=== PATIENT | female | born 1940 | race Caucasian/White ===

== ENCOUNTER 2017-06-27 15:53 | Observation (INO) ==
[2017-06-27 16:59] LABS: Bilirubin,Urine Negative (Negative); Blood,Urine Negative (Negative); Clarity,Urine Cloudy (Clear); Color,Urine Yellow (Yellow); Glucose,Urine (UA) Normal (Normal); Ketones,Urine Trace mg/dL (Negative); Leukocyte Esterase,Urine Moderate (Negative); Nitrite,Urine Negative (Negative); Protein,Urine Trace mg/dL (Neg-Trace); Specific Gravity,Urine 1.026 (1.010-1.025); Urobilinogen,Urine Normal (Normal)
[2017-06-27 17:04] LABS: Bacteria,Urine None Seen per hpf (None-Few); Hyaline Casts,Urine Few per lpf (None-Few); Squamous Epithelial Cell,Urine Many per lpf (None-Few); WBC,Urine 15-30 per hpf (0-3)
[2017-06-27 17:25] LABS: Basophils # 0.1 K/mcL (0.0-0.2); Basophils % 1.1 %; Eosinophils # 0.2 K/mcL (0.0-0.6); Hematocrit 34.9 % (35.3-44.9); Hemoglobin 11.4 g/dL (11.5-15.4); Immature Granulocytes % 0.4 % (0-4); Lymphocytes # 2.6 K/mcL (0.6-4.6); Lymphocytes % 32.7 %; Mean Corpuscular HGB Conc 32.7 g/dL (31.6-35.5); Mean Corpuscular Hemoglobin 33.4 pg (28.0-33.3); Mean Corpuscular Volume 102.3 fL (83.0-100.0); Mean Platelet Volume 8.8 fL (9.4-12.4); Monocytes # 0.7 K/mcL (0.0-1.3); Monocytes % 8.5 %; Neutrophils # 4.3 K/mcL (1.6-8.9); Platelet Count 290 K/mcL (140-400); Red Blood Count 3.41 M/mcL (3.82-4.97); Red Cell Distribution Width 13.3 % (11.5-14.5); Segmented Neutrophils % 54.3 %
[2017-06-27 17:54] LABS: Albumin 4.1 g/dL (3.5-5.7); Albumin/Globulin Ratio 1.1 (1.1-2.2); Bilirubin,Indirect 0.3 mg/dL (0.0-1.2); Bilirubin,Total 0.3 mg/dL (0.3-1.0); Calcium 9.6 mg/dL (8.6-10.3); Globulin 3.6 g/dL (2.4-3.5); Potassium 4.1 mEq/L (3.5-5.1); Total Protein 7.7 g/dL (6.4-8.9)
--- NOTE | 2017-06-27 18:25 | Emergency Department Note ---
Disposition Clinical Impression: Bloody stool Abdominal pain Qualifiers: Abdominal location: unspecified location Qualified Code(s): R10.9 - Unspecified abdominal pain Disposition: Admitted As Inpatient Condition: Good Time of Disposition: 20:47 General Adult HPI - General Chief complaint: ED Abdominal Pain Stated complaint: "bloody diarrhea" Time Seen by Provider: 06/27/17 18:05 Source: patient Limitations: no limitations Nursing Notes Reviewed: Yes Vital Signs Reviewed: Yes - History of Present Illness HPI Narrative: Patient is a 76-year-old female that presents to the emergency Department with blood in her stool. States that she has been having a lot of diarrhea lately and today had a bright red bloody bowel movement with clots. She states that there is blood in the toilet and when she wiped she had clots in the toilet paper. She has that she has never had anything like this before. Patient also states that she has been having right-sided flank and abdominal pain for the past few months and was going to have this evaluated by CT but has not been able to do so yet. Patient states that she has only had 1 episode of bloody diarrhea. She states that she is not feeling any more dizzy or lightheaded than normal. Pain Scale: 10 - Related Data Home Medications Medication Instructions Recorded Confirmed Allopurinol [Zyloprim 300 MG] 300 mg PO DAILY 09/12/15 06/27/17 Esomeprazole Magnesium [Nexium] 40 mg PO DAILY 09/12/15 06/27/17 Fluticasone/Salmeterol [Advair 1 each IH BID 09/12/15 06/27/17 250-50 Diskus] Indapamide [Lozol] 1.25 mg PO DAILY 09/12/15 06/27/17 LORazepam [Ativan] 0.5 mg PO BID 09/12/15 06/27/17 Ranitidine HCl [Zantac] 150 mg PO BID PRN 09/12/15 06/27/17 Albuterol Neb [Proventil Neb] 2.5 mg IH QID 06/27/17 06/27/17 Albuterol Sulfate [Proair Hfa] 2 puff IH Q4-6H PRN 06/27/17 06/27/17 Buspirone HCl [Buspar] 15 mg PO TID 06/27/17 06/27/17 Cefdinir [Omnicef] 300 mg PO BID 06/27/17 06/27/17 DULoxetine [Cymbalta] 20 mg PO DAILY 06/27/17 06/27/17 Gabapentin [Neurontin] 100 mg PO HS 06/27/17 06/27/17 Levothyroxine [Synthroid] 25 mcg PO QAM 06/27/17 06/27/17 Lisinopril [Zestril] 40 mg PO DAILY 06/27/17 06/27/17 Nitroglycerin [Nitrostat] 0.4 mg SL Q5M PRN 06/27/17 06/27/17 Ropinirole HCl [Requip] 0.5 - 1 mg PO HS 06/27/17 06/27/17 Theophylline Anhydrous [[place]-24] 300 mg PO BID 06/27/17 06/27/17 Allergies Allergy/AdvReac Type Severity Reaction Status Date / Time codeine Allergy Chest Pain Verified 06/27/17 16:37 All systems ED: reviewed and negative except as stated. Cardiovascular: Denies: chest pain Respiratory: Denies: dyspnea Gastrointestinal: Reports: abdominal pain, hematochezia Musculoskeletal: Reports: back pain Past Medical History - Past Medical History Medical history: Reports: asthma, atrial fibrillation, CHF, GERD, hypertension Surgical history: Reports: appendectomy, cholecystectomy, hysterectomy, other Psychiatric history: Reports: anxiety - Social History Smoking Status: Never smoker Smokeless Tobacco Status: No Alcohol use: Reports: none Drug use: Reports: none Physical Exam - General Limitations: no limitations (Right flank) General appearance: alert, in no apparent distress - Head Head exam: atraumatic, normocephalic - Eye Eye exam: Present: normal appearance, EOMI - Neck Neck exam: Present: normal inspection, full ROM, trachea midline - Respiratory Respiratory exam: Present: normal lung sounds bilaterally. Absent: respiratory distress, wheezes - Cardiovascular Cardiovascular exam: Present: regular rate, normal rhythm, normal heart sounds, +S1, +S2 - Abdominal Exam Abdominal exam: Present: soft, tenderness, normal bowel sounds Abdominal tenderness: Present: diffuse - Neurological Exam Neurological exam: Present: alert, oriented X3 - Psychiatric Psychiatric exam: Present: normal affect, normal mood - Skin Skin exam: Present: warm, dry, intact Course Vital Signs Temperature 98.1 F 06/27/17 16:34 Pulse Rate 76 06/27/17 16:34 Respiratory Rate 16 06/27/17 16:34 Blood Pressure 136/75 06/27/17 16:34 O2 Sat by Pulse Oximetry 97 06/27/17 16:34 Temperature 98.8 F 06/27/17 23:12 Pulse Rate 74 06/27/17 23:12 Respiratory Rate 16 06/27/17 23:12 Blood Pressure 147/85 06/27/17 23:12 O2 Sat by Pulse Oximetry 97 06/27/17 23:12 Oxygen Delivery Oxygen Delivery Room Air Medical Decision Making - MDM Narrative Medical decision making narrative: Due to the patient having bloody stool and abdominal pain on exam will obtain a CBC, BMP, hepatic panel, lipase, urinalysis and a CT of the abdomen and pelvis. Patient is a mildly elevated creatinine of 1.73 her baseline is 1.4-1.5. Patient has a hemoglobin of 11.4 however this appears to be chronic for her. Due to the patient having positive stool occult and passing clots in her stool that the patient should be admitted to trend her hemoglobin and rule out a GI bleed. I called and spoke with the hospitalist and they have accepted the patient to their service. Patient will be admitted to the hospital at this time. Consult to GI was placed. - Lab Data Lab results reviewed: Yes I reviewed the patient's lab results. Result diagrams: 06/27/17 17:05 06/27/17 17:05 Lab Results 06/27/17 06/27/17 06/27/17 Range/Units 16:45 17:05 17:05 WBC 7.9 (4.3-11.1) K/mcL RBC 3.41 L (3.82-4.97) M/mcL Hgb 11.4 L (11.5-15.4) g/dL Hct 34.9 L (35.3-44.9) % MCV 102.3 H (83.0-100.0) fL MCH 33.4 H (28.0-33.3) pg MCHC 32.7 (31.6-35.5) g/dL RDW 13.3 (11.5-14.5) % Plt Count 290 (140-400) K/mcL MPV 8.8 L (9.4-12.4) fL Immature Gran % 0.4 (0-4) % Seg Neutrophils % 54.3 % Lymphocytes % 32.7 % Monocytes % 8.5 % Eosinophils % 3.0 % Basophils % 1.1 % Neutrophils # 4.3 (1.6-8.9) K/mcL Lymphocytes # 2.6 (0.6-4.6) K/mcL Monocytes # 0.7 (0.0-1.3) K/mcL Eosinophils # 0.2 (0.0-0.6) K/mcL Basophils # 0.1 (0.0-0.2) K/mcL Sodium 142 (136-145) mEq/L Potassium 4.1 (3.5-5.1) mEq/L Chloride 110 H (98-107) mEq/L Carbon Dioxide 25 (23-29) mEq/L BUN 31 H (8-23) mg/dL Creatinine 1.73 H (0.60-1.20) mg/dL Est GFR ( Amer) 35 L (> 60) Est GFR (Non-Af Amer) 29 L (> 60) BUN/Creatinine Ratio 18 (6-26) Glucose 89 (70-105) mg/dL Calculated Osmolality 300 (280-300) Lactic Acid (0.5-2.2) mmol/L Calcium 9.6 (8.6-10.3) mg/dL Total Bilirubin 0.3 (0.3-1.0) mg/dL Direct Bilirubin 0.0 (0.0-0.2) mg/dL Indirect Bilirubin 0.3 (0.0-1.2) mg/dL AST 19 (13-39) Units/L ALT 18 (7-52) Units/L Alkaline Phosphatase 86 (34-104) Units/L Serum Total Protein 7.7 (6.4-8.9) g/dL Albumin 4.1 (3.5-5.7) g/dL Globulin 3.6 H (2.4-3.5) g/dL Albumin/Globulin Ratio 1.1 (1.1-2.2) Lipase 69 (11-82) Units/L Urine Color Yellow (Yellow) Urine Clarity Cloudy A (Clear) Urine pH 5.0 (5.0-8.0) pH Units Ur Specific [place] 1.026 H (1.010-1.025) Urine Protein Trace (Neg-Trace) mg/dL Urine Glucose (UA) Normal (Normal) mg/dL Urine Ketones Trace H (Negative) mg/dL Urine Blood Negative (Negative) Urine Nitrite Negative (Negative) Urine Bilirubin Negative (Negative) Urine Urobilinogen Normal (Normal) mg/dL Ur Leukocyte Esterase Moderate H (Negative) Urine Microscopic RBC 5-15 H (0-3) per hpf Urine Microscopic WBC 15-30 H (0-3) per hpf Ur Squamous Epith Cells Many H (None-Few) per lpf Urine Bacteria None Seen (None-Few) per hpf Hyaline Casts Few (None-Few) per lpf Ur Culture Indicated? NO. (NO) Stool Occult Blood (Negative) 06/27/17 06/27/17 Range/Units 20:10 20:51 WBC (4.3-11.1) K/mcL RBC (3.82-4.97) M/mcL Hgb (11.5-15.4) g/dL Hct (35.3-44.9) % MCV (83.0-100.0) fL MCH (28.0-33.3) pg MCHC (31.6-35.5) g/dL RDW (11.5-14.5) % Plt Count (140-400) K/mcL MPV (9.4-12.4) fL Immature Gran % (0-4) % Seg Neutrophils % % Lymphocytes % % Monocytes % % Eosinophils % % Basophils % % Neutrophils # (1.6-8.9) K/mcL Lymphocytes # (0.6-4.6) K/mcL Monocytes # (0.0-1.3) K/mcL Eosinophils # (0.0-0.6) K/mcL Basophils # (0.0-0.2) K/mcL Sodium (136-145) mEq/L Potassium (3.5-5.1) mEq/L Chloride (98-107) mEq/L Carbon Dioxide (23-29) mEq/L BUN (8-23) mg/dL Creatinine (0.60-1.20) mg/dL Est GFR ( Amer) (> 60) Est GFR (Non-Af Amer) (> 60) BUN/Creatinine Ratio (6-26) Glucose (70-105) mg/dL Calculated Osmolality (280-300) Lactic Acid 0.7 (0.5-2.2) mmol/L Calcium (8.6-10.3) mg/dL Total Bilirubin (0.3-1.0) mg/dL Direct Bilirubin (0.0-0.2) mg/dL Indirect Bilirubin (0.0-1.2) mg/dL AST (13-39) Units/L ALT (7-52) Units/L Alkaline Phosphatase (34-104) Units/L Serum Total Protein (6.4-8.9) g/dL Albumin (3.5-5.7) g/dL Globulin (2.4-3.5) g/dL Albumin/Globulin Ratio (1.1-2.2) Lipase (11-82) Units/L Urine Color (Yellow) Urine Clarity (Clear) Urine pH (5.0-8.0) pH Units Ur Specific [place] (1.010-1.025) Urine Protein (Neg-Trace) mg/dL Urine Glucose (UA) (Normal) mg/dL Urine Ketones (Negative) mg/dL Urine Blood (Negative) Urine Nitrite (Negative) Urine Bilirubin (Negative) Urine Urobilinogen (Normal) mg/dL Ur Leukocyte Esterase (Negative) Urine Microscopic RBC (0-3) per hpf Urine Microscopic WBC (0-3) per hpf Ur Squamous Epith Cells (None-Few) per lpf Urine Bacteria (None-Few) per hpf Hyaline Casts (None-Few) per lpf Ur Culture Indicated? (NO) Stool Occult Blood Positive A (Negative) - Radiology Data Radiology results reviewed: Yes I reviewed the patient's radiology results. Abdomen/Pelvis CT 06/27/17 18:22 IMPRESSION: 1. No acute abnormality in the abdomen or pelvis. No explanation for the patient's bloody diarrhea. 2. Colonic diverticulosis. 3. Small nonobstructing left intrarenal calculi. 4. Status post cholecystectomy and hysterectomy. D/ / Jesus Mac MD / Jesus Mac MD Interpreting Provider: Jesus Mac MD Attestation Statement - Attestation Attestation: I examined this patient and my medical decision-making was reviewed with the Resident Physician. I agree with the documented findings, disposition and treatment plan as described except to the extent set forth below. No peritoneal abdominal examination, advanced imaging is negative, will admit for trending of colon and hematocrit as well as possible GI consultation for possible colitis, antibiotic started for possible colitis.
[2017-06-27] MEDS ORDERED: Famotidine 20 MG TABLET PO PRN (22:00)
[2017-06-27] MEDS ORDERED: Nitroglycerin 0.4 MG TAB.SUBL SL PRN (22:00)
[2017-06-27] MEDS ORDERED: Naloxone 0.4 MG/ML INJ IVP PRN (22:01)
[2017-06-27] MEDS ORDERED: Ondansetron 4 MG/2 ML VIAL IVP PRN (22:03)
--- NOTE | 2017-06-27 22:09 | Internal Med History&Physical ---
Date of Encounter: 06/27/17 Time of Encounter: 22:05 Assessment and Plan (1) Bloody stool Current visit: Yes Status: Acute CT A/p w/o colitis Check Hb in the a.m send O and P, stool culture, Cdiff given antibiotics clears IVF GI follow up in the a.m (2) Diarrhea Current visit: Yes Status: Acute check above studies has complete 7 days of antibiotics for UTI per patient. Hold for now pending above studies Qualifiers: Diarrhea type: presumed infectious Qualified Code(s): R19.7 - Diarrhea, unspecified (3) CKD (chronic kidney disease) stage 3, GFR 30-59 ml/min Current visit: Yes Status: Acute mild renal insufficiency has CKD (4) HTN (hypertension), benign Current visit: Yes Status: Acute continue med Internal Medicine - H&P: HPI Chief complaint: Blood diarrhea History of present illness: Ms. Bahnea is a 76 year old female who presents with bloody diarrhea. Hx of HTN and asthma. She reports chronic on and off diarrhea for the last several months that comes on and off every 3-4 days. Described as watery. Today, she had 1 episode of red bloody diarrhea described as bright red with some scant clots. Denies Belly pain. Reports subacute onset of Right flank pain the goes down the the back of the flanks and into leg that is better with tylenol. Of note, she had been taking antibiotics - cephalosporin for the last 7 days as prescribed by PCP Dr Vanegas for empiric UTI therapy. On review, she denies hx of GIB. She lives with 18 yo great grandson and uses a cane CT/CT abd pelvis wo no iv no oral IMPRESSION: 1. No acute abnormality in the abdomen or pelvis. No explanation for the patient's bloody diarrhea. 2. Colonic diverticulosis. 3. Small nonobstructing left intrarenal calculi. 4. Status post cholecystectomy and hysterectomy. Past Med Surg Social Fam HX - Past Medical History Medical history: asthma, atrial fibrillation, CHF, GERD, hypertension Psychiatric history: anxiety - Past Surgical History Surgical History: appendectomy, cholecystectomy, hysterectomy, other - Social History Smoking Status: Never smoker Smokeless Tobacco Status: No Alcohol use: none Drug use: none - Family History Father Adopted: No Mother Adopted: No Family Member Ethnicity: Non- Living Status: Internal Medicine - H&P: Meds Allopurinol [Zyloprim 300 MG] 300 mg PO DAILY 09/12/15 [History] Esomeprazole Magnesium [Nexium] 40 mg PO DAILY 09/12/15 [History] Fluticasone/Salmeterol [Advair 250-50 Diskus] 1 each IH BID 09/12/15 [History] Indapamide [Lozol] 1.25 mg PO DAILY 09/12/15 [History] LORazepam [Ativan] 0.5 mg PO BID 09/12/15 [History] Ranitidine HCl [Zantac] 150 mg PO BID PRN 09/12/15 [History] Albuterol Neb [Proventil Neb] 2.5 mg IH QID 06/27/17 [History] Albuterol Sulfate [Proair Hfa] 2 puff IH Q4-6H PRN 06/27/17 [History] Buspirone HCl [Buspar] 15 mg PO TID 06/27/17 [History] Cefdinir [Omnicef] 300 mg PO BID 06/27/17 [History] DULoxetine [Cymbalta] 20 mg PO DAILY 06/27/17 [History] Gabapentin [Neurontin] 100 mg PO HS 06/27/17 [History] Levothyroxine [Synthroid] 25 mcg PO QAM 06/27/17 [History] Lisinopril [Zestril] 40 mg PO DAILY 06/27/17 [History] Nitroglycerin [Nitrostat] 0.4 mg SL Q5M PRN 06/27/17 [History] Ropinirole HCl [Requip] 0.5 - 1 mg PO HS 06/27/17 [History] Theophylline Anhydrous [[place]-24] 300 mg PO BID 06/27/17 [History] 3 Allergy/AdvReac Type Severity Reaction Status Date / Time codeine Allergy Chest Pain Verified 06/27/17 16:37 All Systems PM: A 10-system review of systems was performed and is negative for pertinent findings except as documented above in the HPI. Review of systems: ROS 14 point review of systems reviewed as best as possible given presentation. Pertinent positive or negative as per HPI or otherwise reviewed as negative - Constitutional Vitals: Temp Pulse Resp BP Pulse Ox 98.1 F 76 16 155/86 97 02/08/18 16:34 06/27/17 16:34 06/27/17 21:39 06/27/17 21:39 06/27/17 16:34 Exam: General - AAO x 3 Psych - Appropriate affect/speech. No agitation Eyes - ONUR. Eye lids intact. No scleral icterus Neuro - No gross peripheral or central neuro deficits with intact CN 2-12 exam on inspection Heart - Sinus. RRR. S1 and S2 present. No added HS/murmurs appreciated. No elevated JVD appreciated. Lung - Adequate air entry b/l, No crackles/wheezes appreciated GI - Soft, non-tender. No hepatosplenomegaly/ascites. BS+ - right sided discomfort down the flank without guarding or rigidity Skin - Intact. No rash/petechiae/ecchymosis. +1 b/l LE edema Internal Med - H&P Results - Labs CBC & Chem 7: 06/27/17 17:05 06/27/17 17:05
[2017-06-27] MEDS: Ringers Solution, Lactated 1,000 ML IVC SCH (22:37)
[2017-06-27] MEDS ORDERED: Gabapentin 100 MG CAPSULE PO SCH (22:43)
[2017-06-27] MEDS ORDERED: rOPINIRole 1 MG TABLET PO SCH (22:45)
[2017-06-27] MEDS: Budesonide/Formoterol 80/4.5 MDI IH SCH (23:07)
[2017-06-27] MEDS: *HR* LORazepam 0.5 MG TABLET PO SCH (23:13)
[2017-06-28] MEDS: Albuterol 2.5 MG/3 ML NEBULIZER IH SCH ×2 (04:26→10:03)
[2017-06-28 04:52] LABS: Basophils # 0.1 K/mcL (0.0-0.2); Basophils % 0.9 %; Eosinophils # 0.3 K/mcL (0.0-0.6); Eosinophils % 3.9 %; Hematocrit 30.5 % (35.3-44.9); Hemoglobin 9.9 g/dL (11.5-15.4); Immature Granulocytes % 0.4 % (0-4); Lymphocytes % 43.8 %; Mean Corpuscular HGB Conc 32.5 g/dL (31.6-35.5); Mean Corpuscular Hemoglobin 32.8 pg (28.0-33.3); Mean Platelet Volume 8.8 fL (9.4-12.4); Monocytes # 0.7 K/mcL (0.0-1.3); Monocytes % 10.2 %; Neutrophils # 2.8 K/mcL (1.6-8.9); Nucleated Red Blood Cells 0.7 /100 WBC (0); Platelet Count 253 K/mcL (140-400); Red Blood Count 3.02 M/mcL (3.82-4.97); Red Cell Distribution Width 13.2 % (11.5-14.5); Segmented Neutrophils % 40.8 %
[2017-06-28 05:18] LABS: Potassium 3.5 mEq/L (3.5-5.1)
[2017-06-28 05:39] LABS: Calcium 8.8 mg/dL (8.6-10.3); Magnesium 1.4 mg/dL (1.6-2.6)
[2017-06-28] MEDS ORDERED: *HR* Enoxaparin 30 MG/0.3 ML SYRINGE SQ SCH (06:00)
[2017-06-28] MEDS ORDERED: Levothyroxine 25 MCG TABLET PO SCH (06:30)
[2017-06-28 06:56] VITALS: BP 124/73
[2017-06-28] MEDS ORDERED: Lisinopril 20 MG TABLET PO SCH (09:00)
[2017-06-28] MEDS ORDERED: *HR* LORazepam 0.5 MG TABLET PO SCH (09:00)
--- NOTE | 2017-06-28 09:09 | Discharge Summary ---
Date of Encounter: 06/28/17 Time of Encounter: 09:04 - Discharge Diagnosis (1) Bleeding hemorrhoid Priority: Primary Status: Acute (2) Bloody stool Priority: Secondary Status: Resolved (3) CKD (chronic kidney disease) stage 3, GFR 30-59 ml/min Priority: Secondary Status: Acute (4) Diarrhea Priority: Secondary Status: Acute Qualifiers: Diarrhea type: functional diarrhea Qualified Code(s): K59.1 - Functional diarrhea (5) HTN (hypertension), benign Priority: Secondary Status: Acute (6) Anemia Priority: Secondary Status: Suspected Qualifiers: Anemia type: iron deficiency Iron deficiency anemia type: chronic blood loss Qualified Code(s): D50.0 - Iron deficiency anemia secondary to blood loss (chronic) - Discharge Medications Prescriptions: Hydrocortisone [Anusol-Hc] 30 gm RC BID #1 cream..g. Multivit-Min/Iron/Folic/Lutein [Centrum Silver Women Tablet] 1 each PO DAILY # 30 tablet Home Medications: Allopurinol [Zyloprim 300 MG] 300 mg PO DAILY 09/12/15 [History] Esomeprazole Magnesium [Nexium] 40 mg PO DAILY 09/12/15 [History] Fluticasone/Salmeterol [Advair 250-50 Diskus] 1 each IH BID 09/12/15 [History] Indapamide [Lozol] 1.25 mg PO DAILY 09/12/15 [History] LORazepam [Ativan] 0.5 mg PO BID 09/12/15 [History] Ranitidine HCl [Zantac] 150 mg PO BID PRN 09/12/15 [History] Albuterol Neb [Proventil Neb] 2.5 mg IH QID 06/27/17 [History] Albuterol Sulfate [Proair Hfa] 2 puff IH Q4-6H PRN 06/27/17 [History] Buspirone HCl [Buspar] 15 mg PO TID 06/27/17 [History] Cefdinir [Omnicef] 300 mg PO BID 06/27/17 [History] DULoxetine [Cymbalta] 20 mg PO DAILY 06/27/17 [History] Gabapentin [Neurontin] 100 mg PO HS 06/27/17 [History] Levothyroxine [Synthroid] 25 mcg PO QAM 06/27/17 [History] Lisinopril [Zestril] 40 mg PO DAILY 06/27/17 [History] Nitroglycerin [Nitrostat] 0.4 mg SL Q5M PRN 06/27/17 [History] Ropinirole HCl [Requip] 0.5 - 1 mg PO HS 06/27/17 [History] Theophylline Anhydrous [[place]-24] 300 mg PO BID 06/27/17 [History] Hydrocortisone [Anusol-Hc] 30 gm RC BID #1 cream..g. 06/28/17 [Rx] Multivit-Min/Iron/Folic/Lutein [Centrum Silver Women Tablet] 1 each PO DAILY # 30 tablet 06/28/17 [Rx] Allergies/Adverse Reactions: 3 Allergy/AdvReac Type Severity Reaction Status Date / Time codeine Allergy Chest Pain Verified 06/27/17 16:37 Date of admission: 06/27/17 23:16 Primary care physician: Duy Mac MD Consults: 06/27/17 21:05 Consult to Gastroenterology [CONS] Routine Consulting Provider: Gastroenterology Ondina Reason for Consult: blood in stool Call Completed: No Discharging clinician: Tiff Olea Anticipated date of discharge: 06/28/17 - Patient Status Disposition: Home, Self-Care Condition: Good Functional capacity at discharge: independent ambulation Overall status at discharge: patient is back to baseline - Discharge Instructions Instructions: Gastrointestinal Bleeding (DC), Hemorrhoids (DC) Follow Up With: Pepito Blair MD [Partnered Physician] - 07/09/17 9:40 am () Duy Mac MD [Primary Care Provider] - (Please call and make a follow up in 1-2 weeks from discharge date. ) Additional Instructions: Follow-up appointments: If there is not an appointment listed below, please call your physician and schedule a follow-up appointment. If you have congestive heart failure and your symptoms return, make an appointment with your physician. Medication List: Carry an up to date list of medications you are taking at all time. We have given you an updated medication list including any new medications that you have been prescribed. Please provide that list to your primary provider Symptoms: If your condition changes or you experience any of the following symptoms, notify your physician immediately: Unusual or worsening pain, fever, persistent nausea and vomiting, bleeding, increase in swelling (especially in your legs), sudden weight gain, extreme dizziness, chest pain, increased drainage or redness from a wound or incision. Go to the emergency department if you experience a problem with breathing. Weights: If you have a history of swelling or shortness of breath, weigh yourself daily and notify your physician if you have a weight gain of two or more pounds in one day or 5 or more pounds in a week. If you experience any of the warning signs for stroke: Sudden numbness or weakness of the face, arm or leg; especially on one side of the body, sudden confusion, trouble speaking or understanding, sudden trouble seeing in one or both eyes, sudden trouble walking, dizziness, loss of balance or coordination, sudden sever headache with no cause; Call 911 or go to the emergency room. Stroke is a medical emergency. Some risk factors for stroke: Age, cigarette smoking, diabetes, excessive alcohol consumption, family history , high blood pressure, overweight, physical inactivity, prior stroke, heart attack, diagnosis of carotid artery stenosis or other artery disease. If you smoke, STOP: Smoking or tobacco use significantly increases your risk of heart and lung disease. Your chance of disease greatly increases if you continue to smoke. For more information, call the [place] tobacco quit line for smoking cessation QUIT-NOW ( ) - Diet and Activity Activity: increase activity as tolerated Diet: low fat, low cholesterol, low salt diet Hospital course: Ms. Bahnea is a 76 year old female patient came to the ER with complaints of diarrhea which has been intermittent over the past several months associated with an episode of bloody bowel movement. She did have some right flank pain. She had also been on antibiotics prior to presentation. She was kept nothing by mouth and monitored and gastroenterology was consulted. Patient has had no further episodes of diarrhea and is feeling much better today. Rectal exam suggested the presence of hemorrhoids per gastroenterology. They do not recommend any urgent procedures at this time. Since patient is doing better and her symptoms have now improved, she is stable to be discharged home. She will follow up with gastroenterology as outpatient for upper GI endoscopy and colonoscopy. - Time Spent with Patient Total time spent providing and/or coordinating discharge services: Less than 30 minutes (20 min) - Constitutional Vitals: Temp Pulse Resp BP Pulse Ox 98.0 F 77 15 124/73 97 06/28/17 06:55 06/28/17 06:55 06/28/17 06:55 06/28/17 06:55 06/28/17 06:55 General appearance: Present: cooperative, A&O X 3, answers questions appropriately - Respiratory Respiratory exam: Present: CTAB. Absent: accessory muscle use, rales, rhonchi, wheezes - Cardiovascular Cardiovascular exam: Present: RRR, +S1, +S2. Absent: diastolic murmur, gallop, rubs, systolic murmur - GI/Abdominal GI/Abdominal exam: Present: normal bowel sounds, soft, no peritoneal signs. Absent: distended, tenderness
[2017-06-28] MEDS: *HR* LORazepam 0.5 MG TABLET PO SCH (09:24)
[2017-06-28] MEDS: Ringers Solution, Lactated 1,000 ML IVC SCH (09:25)
[2017-06-28] MEDS ORDERED: Budesonide/Formoterol 80/4.5 MDI IH SCH (10:00)
[2017-06-28] MEDS: Budesonide/Formoterol 80/4.5 MDI IH SCH (10:03)
[2017-06-28] MEDS ORDERED: Gabapentin 100 MG CAPSULE PO SCH (21:00)
== END 2017-06-28 12:10 | disposition home or self-care (01) ==
LOC: EMEROO 15:53 → 3BNU 15:53 → SUATTDRO 23:16
PROVIDERS: ADMIT Internal Medicine; ATTEND Internal Medicine

== ENCOUNTER 2020-08-18 13:51 | Observation (INO) ==
[2020-08-18 14:25] LABS: Basophils # 0.1 K/mcL (0.0-0.2); Basophils % 1.2 %; Eosinophils # 0.3 K/mcL (0.0-0.6); Eosinophils % 2.9 %; Hematocrit 34.9 % (35.3-44.9); Hemoglobin 11.5 g/dL (11.5-15.4); Immature Granulocytes % 0.6 % (0-4); Lymphocytes # 2.8 K/mcL (0.6-4.6); Lymphocytes % 30.4 %; Mean Corpuscular Hemoglobin 32.9 pg (28.0-33.3); Mean Corpuscular Volume 99.7 fL (83.0-100.0); Mean Platelet Volume 8.9 fL (9.4-12.4); Monocytes # 0.8 K/mcL (0.0-1.3); Monocytes % 8.9 %; Neutrophils # 5.2 K/mcL (1.6-8.9); Platelet Count 304 K/mcL (140-400); Red Cell Distribution Width 12.5 % (11.5-14.5); White Blood Count 9.3 K/mcL (4.3-11.1)
[2020-08-18 14:51] LABS: BUN/Creatinine Ratio 24 (6-26); Blood Urea Nitrogen 32 mg/dL (8-23); Calcium 10.1 mg/dL (8.6-10.3); Carbon Dioxide 24 mEq/L (23-29); Chloride 106 mEq/L (98-107); Glucose 116 mg/dL (70-105); Osmolality,Calculated 296 (280-300); Potassium 3.7 mEq/L (3.5-5.1); Sodium 139 mEq/L (136-145); Troponin I < 0.03 ng/mL (< 0.04); eGFR For African Americans 47 (> 60); eGFR For Non-African Americans 39 (> 60)
[2020-08-18] MEDS ORDERED: Isovue-370 500 ML BOTTLE IVP ONE (18:10)
[2020-08-18] MEDS ORDERED: Aspirin 325 MG TABLET PO ONE (19:46)
[2020-08-18] MEDS ORDERED: Acetaminophen 325 MG TABLET PO PRN (21:02)
[2020-08-18] MEDS ORDERED: Naloxone 0.4 MG/ML INJ IVP PRN (21:02)
[2020-08-18] MEDS ORDERED: Melatonin 3 MG TABLET PO PRN (21:02)
[2020-08-18] MEDS ORDERED: Ondansetron 4 MG/2 ML VIAL IVP PRN (21:02)
[2020-08-18] MEDS ORDERED: Gabapentin 100 MG CAPSULE PO SCH (22:45)
[2020-08-18] MEDS ORDERED: rOPINIRole 1 MG TABLET PO SCH (23:30)
[2020-08-19 00:39] LABS: Hemoglobin 10.7 g/dL (11.5-15.4); Mean Corpuscular HGB Conc 32.4 g/dL (31.6-35.5); Mean Corpuscular Hemoglobin 33.1 pg (28.0-33.3); Mean Corpuscular Volume 102.2 fL (83.0-100.0); Mean Platelet Volume 9.1 fL (9.4-12.4); Platelet Count 278 K/mcL (140-400); Red Blood Count 3.23 M/mcL (3.82-4.97); Red Cell Distribution Width 12.4 % (11.5-14.5); White Blood Count 7.7 K/mcL (4.3-11.1)
[2020-08-19 01:01] LABS: Alanine Aminotransferase 4 Units/L (7-52); Albumin 3.7 g/dL (3.5-5.7); Albumin/Globulin Ratio 1.1 (1.1-2.2); Alkaline Phosphatase 66 Units/L (34-104); Aspartate Amino Transferase 9 Units/L (13-39); BUN/Creatinine Ratio 22 (6-26); Bilirubin,Total 0.5 mg/dL (0.3-1.0); Blood Urea Nitrogen 31 mg/dL (8-23); Calcium 9.3 mg/dL (8.6-10.3); Carbon Dioxide 24 mEq/L (23-29); Chloride 106 mEq/L (98-107); Globulin 3.4 g/dL (2.4-3.5); Glucose 121 mg/dL (70-105); Magnesium 1.5 mg/dL (1.6-2.6); Osmolality,Calculated 298 (280-300); Phosphorous 3.2 mg/dL (2.7-4.5); Potassium 3.8 mEq/L (3.5-5.1); Sodium 140 mEq/L (136-145); Total Protein 7.1 g/dL (6.4-8.9); Troponin I < 0.03 ng/mL (< 0.04); eGFR For African Americans 44 (> 60); eGFR For Non-African Americans 36 (> 60)
[2020-08-19] MEDS ORDERED: *HR* Heparin 5,000 UNIT/ML VIAL SQ SCH (06:00)
[2020-08-19] MEDS ORDERED: Regadenoson 0.4 MG/5 ML SYRINGE IVP ONE (06:06)
[2020-08-19] MEDS ORDERED: Levothyroxine 25 MCG TABLET PO SCH (06:30)
[2020-08-19] MEDS ORDERED: allopurinoL 300 MG TABLET PO SCH (09:00)
[2020-08-19 10:58] VITALS: BP 121/62
== END 2020-08-19 15:10 | disposition home or self-care (01) ==
LOC: EMEROOARM 13:51 → 3BNU 13:51 → SUATTDRO 20:03 → 3BNU 20:50
PROVIDERS: ADMIT Family Medicine; ATTEND Internal Medicine